=== PATIENT | female | born 1990 | race Caucasian/White ===

== ENCOUNTER 2021-04-04 07:36 | Emergency (ER) | payer OTHER ==
[2021-04-04 08:37] LABS: HEMOGLOBIN 15.9 gm/dl (12.3-15.3); RED BLOOD COUNT 5.08 M/UL (4.00-5.10)
[2021-04-04 09:00] LABS: BUN/CREATININE RATIO 23 (0-10)
[2021-04-04] MEDS ORDERED: ZOFRAN4 MG PO (12:17)
[2021-04-04] MEDS ORDERED: FLAGYL500 MG PO (12:17)
[2021-04-04] MEDS ORDERED: AUGMENTIN 875-1 EACH PO (12:17)
== END 2021-04-04 13:02 | disposition home or self-care (01) ==
LOC: ER1 07:36
PROVIDERS: Physician Assistant
DX: K52.9 Noninfective gastroenteritis and colitis, unspecified (principal); D72.829 Elevated white blood cell count, unspecified; I10 Essential (primary) hypertension; F17.210 Nicotine dependence, cigarettes, uncomplicated
CPT/HCPCS: 80053; 84702; 85025; 96374; 96375; 99284; J2405; J2550; Q9967

== ENCOUNTER 2022-03-31 20:52 | Emergency (ER) | payer OTHER ==
[~2022-03-31 20:52] MED LIST: AUGMENTIN 875-1 EACH PO; FLAGYL500 MG PO; ZOFRAN4 MG PO
== END 2022-03-31 22:58 | disposition home or self-care (01) ==
LOC: ER1 20:52
DX: J06.9 Acute upper respiratory infection, unspecified (principal); F17.290 Nicotine dependence, other tobacco product, uncomplicated; Z20.822 Contact with and (suspected) exposure to COVID-19
CPT/HCPCS: 0240U; 99284

== ENCOUNTER 2022-05-25 08:50 | Emergency (ER) | payer OTHER ==
[~2022-05-25 08:50] MED LIST changes: +BUPROPION XL150 MG PO; +BUSPIRONE HCL5 MG PO; +CEFDINIR300 MG PO; +CLONIDINE HCL0.1 MG PO; +MINIPRESS2 MG PO; +OLANZAPINE10 MG PO; +VISTARIL 50 MG50 MG PO
[2022-05-25 10:10] LABS: HEMOGLOBIN 11.6 gm/dl (12.3-15.3); RED BLOOD COUNT 3.85 M/UL (4.00-5.10); WHITE BLOOD COUNT 4.1 K/UL (4.5-11.0)
[2022-05-25 10:35] LABS: BUN/CREATININE RATIO 20 (0-10)
[2022-05-25] MEDS ORDERED: PYRIDIUM200 MG PO (13:39)
[2022-05-25] MEDS ORDERED: OMNICEF 300 MG300 MG PO (13:39)
== END 2022-05-25 14:00 | disposition home or self-care (01) ==
LOC: ER1 08:50
PROVIDERS: Physician Assistant Medical
DX: R30.0 Dysuria (principal); R31.9 Hematuria, unspecified; I10 Essential (primary) hypertension; F17.290 Nicotine dependence, other tobacco product, uncomplicated; Z87.440 Personal history of urinary (tract) infections
CPT/HCPCS: 76775; 80053; 81001; 83605; 84703; 85025; 87040; 99284

== ENCOUNTER 2022-06-03 09:12 | Emergency (ER) | payer OTHER ==
[~2022-06-03 09:12] MED LIST changes: +OMNICEF 300 MG300 MG PO; +PYRIDIUM200 MG PO
[2022-06-03 10:23] LABS: HEMOGLOBIN 11.7 gm/dl (12.3-15.3); RED BLOOD COUNT 3.9 M/UL (4.00-5.10); WHITE BLOOD COUNT 6.5 K/UL (4.5-11.0)
[2022-06-03 10:51] LABS: BUN/CREATININE RATIO 12 (0-10)
[2022-06-03] MEDS ORDERED: MACROBID 100 M100 MG PO (11:43)
[2022-06-03] MEDS ORDERED: FLOMAX0.4 MG PO (11:43)
[2022-06-03] MEDS ORDERED: TORADOL 10 MG T10 MG PO (11:43)
[2022-06-03] MEDS ORDERED: PYRIDIUM100 MG PO (11:43)
[2022-06-03] MEDS ORDERED: CEPHALEXIN500 M1 PO (11:43)
== END 2022-06-03 12:35 | disposition home or self-care (01) ==
LOC: ER1 09:12
PROVIDERS: Student in an Organized Health Care Education/Training Program
DX: N13.2 Hydronephrosis with renal and ureteral calculous obstruction (principal); N39.0 Urinary tract infection, site not specified; I10 Essential (primary) hypertension; F17.290 Nicotine dependence, other tobacco product, uncomplicated; Z87.442 Personal history of urinary calculi
CPT/HCPCS: 80053; 81001; 84703; 85025; 96374; 96375; 99284; J1885